=== PATIENT | female | born 1985 | race Caucasian/White ===

== ENCOUNTER 2019-02-07 11:05 | Emergency (ER) | payer OTHER ==
--- OUTSIDE RECORDS SUMMARY | 2019-02-07 11:24 | XMS REPORT | Continuity of Care Document ---
:1985 External Reference #:[id number] Author Name Perla Larkin M.D. Address [address] [place] [address] Care Team Providers Name Role Phone Perla Larkin M.D. 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 Onset: 01/19/2019 Social History Type Date Description Comments Sex Unknown Tobacco Use Start: Unknown Never Smoked Cigarettes ETOH Use Occasional Tobacco Use Start: Unknown Patient has never smoked Exercise Type/Frequency Exercises regularly Allergies, Adverse Reactions, Alerts Active Allergies Reaction Severity Comments Date Doxycycline hives 12/31/2016 Inactive Allergies NKDA 06/19/2016 Medications Active Medications SIG Qnty Indications Ordering Provider Date + Dha once a day Unknown 27-1&250mg THPK Vitamin B Complex 1 by mouth every Unknown Tablets day History Medications No Active Medications Unknown 01/19/2019 - 01/19/2019 Sertraline HCL Take 1 Tablet By 90TableCHRISTINE Pan 09/17/2018 - 50mg Mouth Every Day 09/16/2018 Tablets Sertraline HCL Take 1 Tablet By CHRISTINE Branch 09/17/2018 - 50mg Mouth Every Day 01/19/2019 Tablets Immunizations CPT Code Status Date Vaccine Lot # [id number] Given 01/10/2018 Influenza vac quadrivalent preservative free 6 months and up Vital Signs Date Vital Result Comment 01/19/2019 4:08pm BP Systolic 118 mmHg BP Diastolic 70 mmHg Heart Rate 74 /min Body Temperature 98.2 F Respiratory Rate 16 /min Height 60 inches 5'0" Weight 163.00 lb BMI (Body Mass Index) 31.8 kg/m2 09/22/2018 12:59pm BP Systolic 108 mmHg BP Diastolic 62 mmHg Heart Rate 76 /min Body Temperature 99.0 F Respiratory Rate 16 /min Height 60 inches 5'0" Weight 160.00 lb BMI (Body Mass Index) 31.2 kg/m2 Results Test Date Facility Test Result H/L Range Note Lyme Antibody, 09/22/2018 [facility] IgG P93 Ab. Absent 1 Line Blot, Serum [address] [place] [address] ([phone] - IgG P66 Ab. Absent IgG P58 Ab. Present Abnormal IgG P45 Ab. Absent IgG P41 Ab. Present Abnormal IgG P39 Ab. Absent IgG P30 Ab. Absent IgG P28 Ab. Absent IgG P23 Ab. Absent IgG P18 Ab. Absent Lyme IgG WB Interp. Negative 2 IgM P41 Ab. Absent IgM P39 Ab. Absent IgM P23 Ab. Absent Lyme IgM WB Interp. Negative 3 CBC Electronic [facility] 09/22/2018 [facility]) WBC 11.9 x10^3/UL High 4.0-10.0 RBC 4.81 x10^6/UL 3.93-6.00 HGB 14.8 g/dL 12.0-17.0 HCT 42 % 35-50 MCV 88.1 fL 80.0-95.0 MCH 30.8 pg 25.6-32.2 MCHC 34.9 g/dL 32.2-36.0 RDW-CV 12.5 % 11.6-14.4 PLT 340 x10^3/UL 163-400 MPV 9.0 fL Low 9.4-12.4 Madhavi# 7.29 x10^3/UL High 1.56-6.13 Lymph# 3.63 x10^3/UL 1.18-3.74 Leon# 0.59 x10^3/UL 0.24-0.82 Eos # 0.3 x10^3/UL 0.0-0.5 Baso # 0.05 x10^3/UL 0.01-0.08 Madhavi% 61.4 % 34.0-70.0 Lymph % 30.6 % 20.0-52.0 Leon% 5.0 % 5.0-12.0 Eos% 2.3 % 0.7-7.0 Baso% 0.4 % 0.1-1.2 Comprehensive Metabolic 09/22/2018 [facility]) Sodium 141 mEq/L 134-149 Prof Potassium 4.1 mEq/L 3.6-5.5 Chloride 99 mEq/L 94-112 Carbon Dioxide 22 mEq/L 21-32 Glucose 129 mg/dL High 70-105 4 BUN 10 mg/dL 6-26 Creatinine 0.7 mg/dL 0.6-1.4 BUN/Creat Ratio 14.3 CALC 8.0-36.0 Calcium 9.6 mg/dL 8.6-10.2 Total Protein 8.1 g/dL 6.4-8.3 Albumin 5.0 g/dL 3.8-5.5 Globulin 3.1 g/dL 2.0-4.8 A/G Ratio 1.6 CALC 0.6-2.3 Alk. Phosphatase 56 U/L 30-110 Alt (SGPT) 19 U/L 7-35 Ast (Sgot) 27 U/L 5-34 Total Bilirubin 0.4 mg/dL 0.2-1.3 GFR Non- >60 ml/min/1.73m^ >=60 GFR >60 ml/min/1.73m^ >=60 Laboratory test 09/22/2018 [facility]) Vitamin B-12 395 pg/mL 230-1050 finding TSH 2.13 mIU/L 0.50-6.00 Free T4 0.80 ng/dL 0.75-1.54 1 1 sst 2 Positive: 5 of the following Borrelia-specific bands: 18,23,28,30,39,41,45,58, 66, and 93. Negative: No bands or banding patterns which do not meet positive criteria. 3 Note: An equivocal or positive EIA result followed by a negative Western Blot result is considered NEGATIVE. An equivocal or positive EIA result followed by a positive Western Blot is considered POSITIVE by the CDC. Positive: 2 of the following bands: 23,39 or 41 Negative: No bands or banding patterns which do not meet positive criteria. Criteria for positivity are those recommended by CDC/ASTPHLD. p23=Osp C, p81=fewzqdzgo Note: Sera from individuals with the following may cross react in the Lyme Western Blot assays: other spirochetal diseases (periodontal disease, leptospirosis, relapsing fever, yaws, and pinta); connective autoimmune (Rheumatoid Arthritis and Systemic Lupus Erythematosus and also individuals with Antinuclear Antibody); other infections ([place] Spotted Fever; Rossy-Ng Virus, and Cytomegalovirus). 4 NON-FASTING Procedures Description No Information Available Medical Devices Description No Information Available Encounters Type Date Location Provider Dx Diagnosis Office Visit 09/22/2018 [facility] Office Lorena Andrew, M79.645 Pain in left 1:00p PA finger(s) Assessments Date Code Description Provider 01/19/2019 N97.9 Female infertility, unspecified Perla Larkin M.D. 01/19/2019 E55.9 Vitamin D deficiency, unspecified Perla Larkin M.D. 01/19/2019 D51.9 Vitamin B12 deficiency anemia, unspecified Perla Larkin M.D. 01/19/2019 E07.9 Disorder of thyroid, unspecified Perla Larkin M.D. 01/19/2019 D72.829 Elevated white blood cell count, unspecified Perla Larkin M.D. 09/22/2018 M79.645 Pain in left finger(s) JENNIFER Damon Plan of Treatment Future Appointment(s):01/28/2019 8:30 am - Perla Larkin M.D. at [facility] Awjnqw1501/19/2019 - Perla Larkin M.D.N97.9 Female infertility, unspecifiedNew Labs:CBC Electronic (a New), Ordered: 01/19/19Comp Metabolic-ALL Lab Compani, Ordered: 01/19/19TSH ([facility]), Ordered: 01/19/19FSH, LH & Estradiol , Ordered: 01/19/19T3 Total Ser/Plas Mass/Vol, Ordered: 01/19/19Free T4 (Fma/ [facility]), Ordered: 01/19/19Comments:call if wanting referral [facility] ; check labs with menses to determine next cycle, sex every other day; wrote order for jesse pierson for semen analysis, discussed omrfosrsjdI58.9 Vitamin D deficiency, unspecifiedNew Labs:Vitamin D, 25Hydroxy(Fma/[facility], Ordered: D51.9 Vitamin B12 deficiency anemia, unspecifiedNew Labs:B12 ([facility]ma/[facility]) , Ordered: 01/19/19E07.9 Disorder of thyroid, unspecifiedNew Labs:Thyroid Autoantibodies, Ordered: 01/19/19D72.829 Elevated white blood cell count, unspecifiedAllNew Medication:No Active Medications -Comments:Medication Management Patient Understands medications she's taking? Yes No Are there Barriers to Adherence? Yes No Has the patient been asked about herbal supplements and therapies, and OTC meds? Yes No Functional Status Description No Information Available Mental Status Description No Information Available Referrals Refer to Reason for Referral Status Appt Date [facility] possible ulnar nerve Scheduled 10/05/2018 compression.-left hand [address] [id number] [phone]
[2019-02-07 12:20] LABS: ABS Basophils 0.1 10^3/ul (0-0.2); ABS Eosinophils 0.3 10^3/ul (0-0.6); ABS Lymphocytes 3.1 10^3/ul (1.0-4.8); ABS Monocytes 0.6 10^3/ul (0-0.8); ABS Neutrophils 6.1 10^3/ul (1.5-7.7); Eosinophil % 2.6 %; Hematocrit 40 % (35-47); Hemoglobin 13.9 g/dL (12.0-16.0); Lymphocyte % 30.6 %; Mean Corpuscular HGB Conc 35 g/dL (31-36); Mean Corpuscular Hemoglobin 31 pg (27-31); Mean Corpuscular Volume 90 fL (80-97); Mean Platelet Volume 6.8 fL (7.4-10.4); Nucleated Red Blood Cells % 0.1; Platelet Count 315 10^3/uL (150-450); Red Cell Distribution Width 12 % (10-15); White Blood Count 10.2 10^3/uL (3.5-10.8)
[2019-02-07 13:23] VITALS: BP 129/61
--- NOTE | 2019-02-08 06:54 | ED ---
- HPI Summary HPI Summary: Patient is a 33-year-old female who presents emergency department for vaginal bleeding since last night. Patient states she is roughly 6 weeks . States she had a confirmatory blood tests that her family doctor. Patient states her bleeding symptoms occur normal menstrual cycle. She notes minimal abdominal cramping. Denies chest pain, shortness breath, lightheadedness, dizziness. This is patient's first . Symptoms are moderate in severity. No current modifying factors. - History of Current Complaint Chief Complaint: EDOBProblems Stated Complaint: 6 WEEKS PREG/HEAVY BLEEDING AND CRAMPS PER PT Time Seen by Provider: 02/07/19 11:21 Pain Intensity: 0 - Allergies/Home Medications Allergies/Adverse Reactions: Allergies Allergy/AdvReac Type Severity Reaction Status Date / Time doxycycline Allergy Hives Verified 02/07/19 11:14 Home Medications: Home Medications L.acidoph,Paracasei, B.lactis [Probiotic] 1 each PO DAILY 02/07/19 [History Confirmed 02/07/19] Vitamin TAB* 1 tab PO DAILY 02/07/19 [History Confirmed 02/07/19] PMH/Surg Hx/FS Hx/Imm Hx Previously Healthy: Yes Infectious Disease History: No Infectious Disease History: Denies: Traveled Outside the [place] in Last 30 Days - Family History Known Family History: Positive: Non-Contributory - Social History Occupation: Employed Full-time Lives: With Family Alcohol Use: None Substance Use Type: Reports: None Smoking Status (MU): Former Smoker Review of Systems Constitutional: Negative Cardiovascular: Negative Respiratory: Negative Positive: Abdominal Pain. Negative: Vomiting, Diarrhea Positive: other - vaginal bleeding. Neurological: Negative All Other Systems Reviewed And Are Negative: Yes Physical Exam - Physical Exam Triage Information Reviewed: Yes Vital Signs Reviewed: Yes Appearance: Positive: Well-Appearing - Patient sitting up in bed in no acute distress. Skin: Positive: Warm, Dry Head/Face: Positive: Normal Head/Face Inspection Eyes: Positive: Normal, EOMI Neck: Positive: Supple Respiratory/Lung Sounds: Positive: Clear to Auscultation, Breath Sounds Present Cardiovascular: Positive: Normal, RRR Abdomen Description: Positive: Nontender, Soft Neurological: Positive: Normal, CN Intact II-III Psychiatric: Positive: Affect/Mood Appropriate Procedures - Sedation Patient Received Moderate/Deep Sedation with Procedure: No Diagnostics - Vital Signs Vital Signs Temp Pulse Resp BP Pulse Ox 02/07/19 13:22 98.3 F 71 16 129/61 99 02/07/19 11:11 98.6 F 73 16 125/65 98 - Laboratory Lab Results: Lab Results 02/07/19 02/07/19 02/07/19 Range/Units 12:12 12:12 12:12 WBC 10.2 (3.5-10.8) 10^3/uL RBC 4.50 (3.70-4.87) 10^6 /uL Hgb 13.9 (12.0-16.0) g/dL Hct 40 (35-47) % MCV 90 (80-97) fL MCH 31 (27-31) pg MCHC 35 (31-36) g/dL RDW 12 (10-15) % Plt Count 315 (150-450) 10^3/uL MPV 6.8 L (7.4-10.4) fL Neut % (Auto) 60.2 % Lymph % (Auto) 30.6 % [place] % (Auto) 5.9 % Eos % (Auto) 2.6 % Baso % (Auto) 0.7 % Absolute Neuts (auto) 6.1 (1.5-7.7) 10^3/ul Absolute Lymphs (auto) 3.1 (1.0-4.8) 10^3/ul Absolute Monos (auto) 0.6 (0-0.8) 10^3/ul Absolute Eos (auto) 0.3 (0-0.6) 10^3/ul Absolute Basos (auto) 0.1 (0-0.2) 10^3/ul Absolute Nucleated RBC 0.0 10^3/ul Nucleated RBC % 0.1 Beta HCG, Quant 7.65 mIU/mL Blood Type A Positive Result Diagrams: 02/07/19 12:12 Lab Statement: Any lab studies that have been ordered have been reviewed, and results considered in the medical decision making process. Course/Dx - Course Course Of Treatment: Patient presenting with vaginal bleeding in early . Vital signs are stable. Benign abdominal exam. CBC shows a stable H&H. Beta hCG only 7. Blood Type a positive. U/S per radiology: IMPRESSION: NO INTRAUTERINE GESTATIONAL SAC IS SEEN. THEREFORE DIFFERENTIAL DIAGNOSIS. WOULD INCLUDE EARLY INTRAUTERINE OR RECENT SPONTANEOUS MISCARRIAGE. THE. POSSIBILITY OF AN ECTOPIC CANNOT BE EXCLUDED. RECOMMEND CORRELATION WITH. QUANTITATIVE BETA HCG. Suspect complete given recent positive serum hCG per pt. We'll have patient follow up with OB within 1 week. Can take Tylenol or Motrin for pain as directed. To return to the ER symptoms change or worsen. Patient understands and agrees with plan. - Differential Diagnosis/HQI/PQRI: Incomplete , Missed , Spontaneous , Threatened , Early , Vaginal Bleeding - Diagnoses Provider Diagnoses: Miscarriage Discharge ED - Sign-Out/Discharge Documenting (check all that apply): Patient Departure - Discharge Plan Condition: Good Disposition: HOME Patient Education Materials: Miscarriage (ED) Referrals: Perla Larkin MD [Primary Care Provider] - Samira Arana MD [Medical Doctor] - Additional Instructions: Schedule a follow up appointment with OB within one week Can take tylenol or motrin for pain as needed Increase fluids and rest Return to ER if symptoms change or worsen - Billing Disposition and Condition Condition: GOOD Disposition: Home - Attestation Statements Provider Attestation: the patient was seen by the midlevel provider, it was determined by them that it was not necessary for me to see the patient, I was available for consult during the patient's visit in the ED. I did not establish and patient-physician relationship. The chart however has been reviewed and I am signing in an administrative capacity.
== END 2019-02-07 13:17 | disposition home or self-care (01) ==
LOC: ED 11:05
DX: O03.9 Complete or unspecified spontaneous abortion without complication (principal); Z3A.00 Weeks of gestation of pregnancy not specified; Z87.891 Personal history of nicotine dependence; Z88.1 Allergy status to other antibiotic agents; Z79.899 Other long term (current) drug therapy
CPT/HCPCS: 36415; 76817; 84702; 85025; 86900; 86901; 99282

== ENCOUNTER 2019-04-16 07:59 | Emergency (ER) | payer OTHER ==
--- OUTSIDE RECORDS SUMMARY | 2019-04-16 08:06 | XMS REPORT | Continuity of Care Document ---
:1985 External Reference #:[id number] Author Name Rebecca Ennis NP (transmitted by agent of provider Ginette Martinez) Address [facility] [facility], [place] [address] Care Team Providers Name Role Phone Perla Larkin MD - Family Care Team Information Form Building Supervisor [phone] Medicine Problems Description No Information Available Social History Type Date Description Comments Sex Unknown Allergies, Adverse Reactions, Alerts Active Allergies Reaction Severity Comments Date Doxycycline Hives 03/14/2019 Medications Active Medications SIG Qnty Indications Ordering Provider Date Multivitamin one tablet by Unknown Plus Dha mouth daily 27-0.8-250mg Capsules Selenum one tablet by Unknown mouth daily Zinc 22MG one tablet by Unknown mouth daily Vitamin B-Complex 1 by mouth every Unknown day Tablets Vitamin D3 4,000Iu one capsule by Unknown mouth daily Immunizations Description No Information Available Vital Signs Date Vital Result Comment 03/14/2019 8:08am Height 61.75 inches 5'1.75" Weight 157.00 lb Heart Rate 65 /min BP Systolic 101 mmHg BP Diastolic 58 mmHg Body Temperature 98.4 F O2 % BldC Oximetry 99 % BMI (Body Mass Index) 28.9 kg/m2 Results Test Acquired Date Facility Test Result H/L Range Note Laboratory test 03/14/2019 [facility] Dhea Sulfate <pending> finding [address] [place] [address] [phone] Estradiol <pending> Progesterone <pending> Anti-Thyroid 03/14/2019 [facility] Thyroperoxidase AB <pending> Antibodies Screen [address] [place] [address] [phone] Thyroglobulin AB <pending> Laboratory test 03/14/2019 [facility] CRP High <pending> finding [address] [place] [address] [phone] Ferritin <pending> Hemoglobin A1c (Glyco HGB) <pending> Homocysteine <pending> Insulin Level <pending> Laboratory test finding 03/14/2019 [facility] T3 Free <pending> [address] [place] [address] [phone] T3 Reverse <pending> T3 Total <pending> Thyroid Panel 03/14/2019 [facility] Free T4 (Free <pending> [address] Thyroxine) [place] [address] [phone] Thyroxine <pending> TSH (Thyroid Stim Horm) <pending> Laboratory test finding 03/14/2019 [facility] Zinc Serum < pending> [address] [place] [address] [phone] Vitamin D Total 25(Oh) <pending> Vitamin B12 And Folate 03/14/2019 [facility] Vitamin B12 < pending> Serum [address] [place] [address] [phone] Folic Acid (Folate) <pending> Laboratory test 03/14/2019 [facility] Copper, Serum <pending> finding [address] [place] [address] [phone] Procedures Description No Information Available Medical Devices Description No Information Available Encounters Description No Information Available Assessments Date Code Description Provider 03/14/2019 R53.83 Other fatigue Rebecca Ennis NP 03/14/2019 N94.3 Premenstrual tension syndrome Rebecca Ennis NP 03/14/2019 R14.0 Abdominal distension (gaseous) Rebecca Ennis NP 03/14/2019 K58.0 Irritable bowel syndrome with diarrhea Rebecca Ennis NP Plan of Treatment Future Appointment(s):04/11/2019 3:30 pm - Rebecca [facility] NP at [facility]03/14/2019 - Rebecca Ennis, NPR53.83 Other fatigueFollow up:follow up the week 16th - 45 minutes appt Send SIBO kit to [facility] - takes 2 weeks to get back to [place] Labs to be done on day 21 of your cycleRecommendations:Fatigue is multi-factorial food sensitivities can play a role. An elimination diet is a validated approach to try to pin point food sensitivities. Increase healthy fats in the diet with cold pressed extra virgin olive oil, flax seed, hemp oil, fish oil (wild caught EPA/DHA). Nuts, seeds, avocado. Stress can play a large role in fatigue. Daily stress relaxation techniques. Sleep: sleeping 8 hours a day. Exercise: 30-60 minutes daily of exercise. Keeping your blood sugar stable removing high glycemic foods. Adrenal fatigue (HPA Randolph dysregulation) - Lifestyle changes can make a difference. 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 Sleep is very important as is diet and exercise. Consider stress reduction techniques. Screening Tests: It is important to be up to date on your screening tests for your age Great Resources: The [employer] - free 10 week online program - HIGHLY recommend www.Kixer Recommended Reading: Dr. Guerda Flores book - The Brain Body Diet and/or Hormone Cure Cookbooks: I am not recommending a Keto diet - however these cookbooks are about eating nutrient dense foods. Dr. Carlos Eduardo Cintron - What the heck should I eat Dr. Bryant - Cooking for Life Dr. Irving Alexander??s - Ketotarian - Fat for Fuel or KetoFast COOKBOOKS - These come with liquor establishment manager books if you wish Podcasts: Broken Brain Series The [employer] Radio - Mike Richmond (great website/blog) Focus should be on NUTRIENT DENSE foods. Engaging any mindfulness practice daily will also help heal your HPA axis dysregulation. guided meditation, consider [facility] marko STRESS FREE. Consider MBSR (mindfulness-Based Stress Reduction) 8 week program this year. offered in [facility] every few months. Consider FREE MBSR online program: [email or web address]/ Do ??4-7-8? ? breathing: Breathe in through nose for 4 counts Hold your breath for 7 counts Exhale through mouth for 8 counts This combination of count ratio slows heart rate and relaxes the sympathetic nervous system. Adopt yogapractice- Available reviews of a wide range of yoga practices suggest they can reduce the impact of exaggerated stress responses and may be helpful for both anxiety and depression. In this respect, yoga functions like other self-soothing techniques , such as meditation, relaxation, exercise, or even socializing with friends. By reducing perceived stress and anxiety, yoga appears to modulate stress response systems. This, in turn, decreases physiological arousal ?? for example , reducing the heart rate, lowering blood pressure, and easing respiration. There is also evidence that yoga practices help increase heart rate variability , an indicator of the body's ability to respond to stress more flexibly.N94.3 Premenstrual tension syndromeRecommendations:Gluten and dairy can be the biggest triggers to PMS symptoms along with stress, lack of sleep, alcohol, and micronutrient deficiencies Check hormones on day 21 of your jcxzmL83.0 Abdominal distension (gaseous)Recommendations:If the digestive system is working properly, we have maximum absorption of nutrients, resulting in energy and vitality. When the digestive system is not working well, we have bloating, systemic inflammation, skin rashes, food sensitivities, constipation, abdominal discomfort, fatigue, and many other diverse non-specific symptoms such as headaches, poor mood, joint pain, muscle fatigue, etc. The digestive tract may become compromised with a diet high in refined sugar, a diet low in fiber, as well asantibiotics, medications, stress, parasitic infections, bacterial infections, nutrient deficiencies,and alcohol use. These mechanisms may promote inflammation of the intestinal tract and lead to increased intestinal permeability. What is SIBO? SIBO occurs when the bacteria that normally live in the colon move backwards, up into the small intestine (where they are not supposed to be in high numbers) and an overgrowth develops. It can also occur when the small amount of bacteria normally present in the small intestines overgrows. When the bacteria are in the small intestine, THEY start digesting and fermenting your food (instead of YOU digesting and absorbing your food), creating gas, bloating, and malabsorption for the host. What are the symptoms? Extreme bloating (many people say they look 6months ) Constipation, diarrhea, or both Abdominal pain, tenderness, or discomfort Burping and/or farting Nausea Acid reflux Gastroparesis (like food is just sitting in stomach, won??t go down-feels like a brick in the stomach) Food sensitivities or intolerances Leaky gut Anxiety & depression (very common for SIBO ?? the LPS in the bacterial cell wall (endotoxins) increase inflammatory cytokines, which affect mood) Brain fog How do you test for SIBO? Unfortunately, insurance doesn't tend to cover this test we offer in the office. We use the Bapul and it will test for the two types of SIBO - Methane and Hydrogen. The cost is $179. We recommend you send the test in with your payment and can ask the company for a bill that you can submit to your insurance. You can pay the testin full or they will let you split the payment into 4 payments. Please contact the company if you have any questions and review the handout we have provided for you.K58.0 Irritable bowel syndrome with diarrhea Functional Status Description No Information Available Mental Status Description No Information Available Referrals Description No Information Available
--- OUTSIDE RECORDS SUMMARY | 2019-04-16 08:06 | XMS REPORT | Continuity of Care Document ---
:1985 External Reference #:[id number] Author Name Cruz Rose JR, DO Address [address], [place] [address] Care Team Providers Name Role Phone Missy Babcock FNP Care Team Information Underwriter Mortgage Loan [phone] Problems Description No Information Available Social History Type Date Description Comments Sex Unknown Tobacco Use Start: Unknown Never Smoked Cigarettes Smoking Status Reviewed: 02/28/19 Never Smoked Cigarettes ETOH Use Denies alcohol use Recreational Drug Use Denies Drug Use Exercise Type/Frequency Exercises regularly Seat Belt/Car Seat Always uses seat belt Allergies, Adverse Reactions, Alerts Active Allergies Reaction Severity Comments Date Doxycycline 02/28/2019 Medications Active Medications SIG Qnty Indications Ordering Provider Date Multivitamin Adult Unknown [place] Vitamin D Unknown 50mcg (1999 Ut) Capsules Dha 1 by mouth every Unknown 200mg Capsules day Selenium Sulfide for scalp daily Unknown 2.25% Shampoo B Complete Unknown Tablets Immunizations Description No Information Available Vital Signs Date Vital Result Comment 02/28/2019 3:36pm BP Systolic 102 mmHg BP Diastolic 62 mmHg Height 60 inches 5'0" Weight 163.00 lb BMI (Body Mass Index) 31.8 kg/m2 Last Menstrual Period [id number] 1 Parity 0 Results Description No Information Available Procedures Description No Information Available Medical Devices Description No Information Available Encounters Type Date Location Provider Dx Diagnosis Office Visit 02/28/2019 [facility] Cruz Rose JR, O03.9 Complete or unsp 3:30p DO spontaneous without complication Assessments Date Code Description Provider 02/28/2019 O03.9 Complete or unspecified spontaneous Cruz Rose JR, DO without complication Plan of Treatment 02/28/2019 - Cruz Rose JR, DOO03.9 Complete or unspecified spontaneous without complicationComments:Presents for f/u after being seen in the ED for suspected miscarriage nearly one month ago.Clinical history, presentation and evaluation consistent with completed miscarriage.Reviewed findings.Plans tofollow up further with other PRECISION ASSEMBLER provider as she had previously planned. Functional Status Description No Information Available Mental Status Description No Information Available Referrals Description No Information Available
[2019-04-16 08:07] VITALS: BP 110/66
--- NOTE | 2019-04-16 08:32 | UC ---
Throat Pain/Nasal Clif HPI - HPI Summary HPI Summary: patient had sore throat 5 day sago, seemed to get better after using zinc lozenges. yesterday seemed to be getting worse again and today pain is no better - History of Current Complaint Chief Complaint: UCGeneralIllness Stated Complaint: SORE THROAT Time Seen by Provider: 04/16/19 08:21 Hx Obtained From: Patient Hx Last Menstrual Period: 04/15/19 ?: No Onset/Duration: Gradual Onset Severity: Moderate Pain Intensity: 7 Cough: None Associated Signs & Symptoms: Negative: Hoarseness, Sinus Discomfort, Fever, Rash - Allergies/Home Medications Allergies/Adverse Reactions: Allergies Allergy/AdvReac Type Severity Reaction Status Date / Time doxycycline Allergy Hives Verified 04/16/19 08:00 PMH/Surg Hx/FS Hx/Imm Hx Previously Healthy: Yes - Surgical History Surgical History: None - Family History Known Family History: Positive: Non-Contributory - Social History Occupation: Employed Full-time Lives: With Family Alcohol Use: None Substance Use Type: None Smoking Status (MU): Never Smoked Tobacco Have You Smoked in the Last Year: No Review of Systems All Other Systems Reviewed And Are Negative: Yes Constitutional: Positive: Negative Skin: Positive: Negative Eyes: Positive: Negative ENT: Positive: Sore Throat. Negative: Ear Ache, Sinus Congestion, Sinus Pain/ Tenderness Respiratory: Positive: Negative. Negative: Cough Cardiovascular: Positive: Negative Gastrointestinal: Positive: Negative. Negative: Diarrhea, Nausea Neurological: Positive: Negative Psychological: Positive: Negative Is Patient Immunocompromised?: No Physical Exam Triage Information Reviewed: Yes Appearance: Well-Appearing, No Pain Distress, Well-Nourished Vital Signs: Initial Vital Signs Temp 98.6 F 04/16/19 08:04 Pulse 100 04/16/19 08:04 Resp 20 04/16/19 08:04 BP 110/66 04/16/19 08:04 Pulse Ox 100 04/16/19 08:04 Vital Signs Reviewed: Yes Eyes: Positive: Conjunctiva Clear ENT: Positive: Pharyngeal erythema, TMs normal. Negative: Nasal congestion Neck exam: Normal Neck: Positive: Nontender, No Lymphadenopathy Respiratory Exam: Normal Respiratory: Positive: Lungs clear Cardiovascular Exam: Normal Neurological Exam: Normal Psychological Exam: Normal Skin Exam: Normal Throat Pain/Nasal Course/Dx - Differential Dx/Diagnosis Differential Diagnosis/HQI/PQRI: Influenza, Pharyngitis, Sinusitis, Tonsillitis Provider Diagnosis: Sore throat Discharge ED - Sign-Out/Discharge Documenting (check all that apply): Patient Departure All imaging exams completed and their final reports reviewed: No Studies - Discharge Plan Condition: Good Disposition: HOME Patient Education Materials: Pharyngitis (ED) Referrals: Perla Larkin MD [Primary Care Provider] - 2 Days (if no better) Additional Instructions: drink plenty of fluids and rest use ibuprofen 600mg every 6 hours as needed for fever and pain (take with food) - Billing Disposition and Condition Condition: GOOD Disposition: Home
== END 2019-04-16 09:03 | disposition home or self-care (01) ==
LOC: UCEAST 07:59
DX: J02.9 Acute pharyngitis, unspecified (principal); Z88.1 Allergy status to other antibiotic agents
CPT/HCPCS: 87651; 99211; G0463